=== PATIENT | female | born 1945 | race Caucasian/White ===

== ENCOUNTER 2020-04-19 11:26 | Outpatient (CLI) | payer MEDICARE, SELFPAY ==
--- NOTE | ~2020-04-19 | XR_ITS ---
EXAMINATION: XR hand LT min 3V, XR hand RT min 3V DATE: 04/19/2020 11:52 INDICATION: Bilateral hand pain. TECHNIQUE: 1. Posteroanterior, oblique and lateral views of the left hand were obtained. 2. Posteroanterior, oblique and lateral views of the right hand were obtained. COMPARISON: None. FINDINGS: Normal alignment at the bilateral hands. Symmetric likely developmental small bilateral distal phalan ges at the thumbs. No fracture. 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 Mild osteoarthritis at the bilateral wrist, triscaphe and remaining metacarpophalange al and interphalangeal joints. No cortical erosions to suggest an inflammatory arthritis. Loose osteo chondral body along the dorsal side of the left ulnar styloid process. IMPRESSION: 1. 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 Reviewed, dictated and finalized at location A. IMPRESSION: 1. 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
== END 2020-04-19 11:27 | disposition home or self-care (01) ==
PROVIDERS: PCP Family Medicine; Visit Provider Nurse Practitioner Family
DX: M19.041 Primary osteoarthritis, right hand (principal); M19.042 Primary osteoarthritis, left hand
CPT/HCPCS: 73130

== ENCOUNTER 2021-01-24 15:26 | Outpatient (CLI) | payer MEDICARE, SELFPAY | END 2021-01-24 15:27 | disposition home or self-care (01) | LOC: ANHCOVIDVC 15:27 | PROVIDERS: PCP Family Medicine | DX: Z23 Encounter for immunization (principal) | CPT/HCPCS: 0001A; 91300 ==

== ENCOUNTER 2021-02-15 10:11 | Outpatient (CLI) | payer MEDICARE, SELFPAY | END 2021-02-15 10:12 | disposition home or self-care (01) | LOC: ANHCOVIDVC 10:11 | PROVIDERS: PCP Family Medicine | DX: Z23 Encounter for immunization (principal) | CPT/HCPCS: 0002A; 91300 ==

== ENCOUNTER → 2021-02-28 09:32 | Outpatient (CLI) | payer MEDICARE, SELFPAY ==
[2021-03-01 21:01] LABS: SARS-CoV-2 RNA PCR Negative
== END ==
PROVIDERS: PCP Family Medicine; Visit Provider Family Medicine
DX: R68.89 Other general symptoms and signs (principal); Z20.822 Contact with and (suspected) exposure to COVID-19
CPT/HCPCS: C9803; U0003; U0005

== ENCOUNTER 2021-05-15 09:15 | Outpatient (CLI) | payer MEDICARE, SELFPAY ==
[2021-05-15 09:47] LABS: Basophils Percent Auto 0.5 % (0.2-1.2); Eosinophils Absolute Auto 0.2 K/mm3 (0-0.3); Eosinophils Percent Auto 2.9 % (0-4.4); Hematocrit 40.8 % (37.0-47.0); Hemoglobin 12.7 g/dL (12.0-15.0); Immature Granulocyte Absolute 0.03 K/mm3 (0.00-0.031); Immature Granulocyte Percent A 0.5 % (0-0.5); Lymphocytes Absolute Auto 1.21 K/mm3 (0.9-3.2); Lymphocytes Percent Auto 20.4 % (18.3-44.2); Mean Corpuscular HGB Conc 31.1 g/dl (32-36); Mean Corpuscular Hemoglobin 26.2 pg (26-34); Mean Corpuscular Volume 84.3 fl (80-100); Mean Platelet Volume 8.3 fl (7.4-10.4); Monocytes Absolute Auto 0.4 K/mm3 (0.1-0.6); Monocytes Percent Auto 6.1 % (2.6-8.5); Neutrophils Absolute Auto 4.1 K/mm3 (1.3-6.7); Neutrophils Percent Auto 69.6 % (45.5-73.1); Platelet Count Result 207 k/mm3 (150-375); Red Blood Count 4.84 M/mm3 (4.2-5.4); Red Cell Distribution Width 14.6 % (11.5-14.5); White Blood Count 5.9 K/mm3 (4.5-10.0)
[2021-05-15 09:56] LABS: Alanine Aminotransferase 17 U/L (4-35); Albumin Level 4.3 g/dL (3.5-5.1); Alkaline Phosphatase 91 U/L (38-126); Anion Gap 9 mmol/L (8-16); Aspartate Amino Transferase 27 U/L (14-36); Bilirubin,Total 0.4 mg/dL (0.2-1.3); Blood Urea Nitrogen 14 mg/dL (7-17); Calcium 9.9 mg/dL (8.4-10.2); Carbon Dioxide 28 mmol/L (22-30); Chloride 104 mmol/L (98-107); Cholesterol 290 mg/dL (0-200); Estimated Glomerular Filt Rate > 60; Glucose 131 mg/dL (65-105); HDL Direct 48 mg/dL; Sodium 141 mmol/L (137-145); Triglycerides 189 mg/dL (<150); Uric Acid 7.5 mg/dL (2.5-7.5)
[2021-05-15 10:06] LABS: LDL Cholesterol Direct 150 mg/dL
[2021-05-15 10:11] LABS: Creatinine Urine 179.2 mg/dL
[2021-05-15 10:13] LABS: MALB Creatinine Ratio 4.6 mg/g (0-30); Microalbumin Urine Random 8.3 mg/L (0-16.7)
[2021-05-15 10:41] LABS: Free T4 Free Thyroxine 1.08 ng/mL (0.78-2.19); Vitamin D 25 Hydroxy 29.4 ng/mL
[2021-05-15 12:14] LABS: Total Triiodothyronine (T3) 1.25 NG/ML (0.97-1.69)
== END 2021-05-15 09:16 | disposition home or self-care (01) ==
PROVIDERS: PCP Family Medicine; Visit Provider Nurse Practitioner
DX: E55.9 Vitamin D deficiency, unspecified (principal); E88.81 Metabolic syndrome and other insulin resistance; F41.1 Generalized anxiety disorder; F32.9 Major depressive disorder, single episode, unspecified; I13.10 Hypertensive heart and chronic kidney disease without heart failure, with stage 1 through stage 4 chronic kidney disease, or unspecified chronic kidney disease; E66.01 Morbid (severe) obesity due to excess calories; I12.9 Hypertensive chronic kidney disease with stage 1 through stage 4 chronic kidney disease, or unspecified chronic kidney disease; N18.30 Chronic kidney disease, stage 3 unspecified
CPT/HCPCS: 36415; 80053; 80061; 82043; 82306; 84439; 84443; 84480; 84550; 85025

== ENCOUNTER 2021-05-29 09:24 | Outpatient (CLI) | payer MEDICARE, SELFPAY ==
--- NOTE | 2021-06-17 18:10 | WPDSLEEPSTUD ---
Sleep Study Date of Study: 05/29/21 Ordering Provider: Jaleel Chirinos DO Interpreting Physician: Divya Chou MD Sleep Study Type: Split Polysomnogram Height: 1.63 m Weight: 104.326 kg Body Mass Index: 39.4 Neck Circumference (inches): 17 Reason for Sleep Study Hypersomnia Sleep History Anabelle Koch is a 75 year old female who has difficulty falling asleep and staying asleep. She does not wake from sleep feeling short of breath. She occasionally wakes with heartburn, belching or coughing. She does not snore and others do not tell her that she snores loudly. She occasionally has trouble sleeping with a cold. she does not wake up gasping for breath at night or sweat excessively at night. She occasionally notices her heart pounding or beating irregularly at night. She frequently falls asleep during the day, never falls asleep involuntarily or while driving. She occasionally has loss of muscle tone with strong emotion. She does not have daytime difficulties due to excessive sleepiness. She does not have vivid dreamlike scenes upon awakening or falling asleep. Does not feel afraid to go to sleep. She occasionally has nightmares. She occasionally remembers her dreams. She constantly feels sad, depressed and anxious. She does not have muscular tension. She frequently notices parts of her body jerking. She constantly has crawling and aching feelings in her legs and leg pain at night. She does not have morning jaw pain. She does not grind her teeth during sleep. She rarely is awakened by pain during the night. She does not wake up feeling stiff in the morning. She does not wake up with sore achy muscles. She rarely wakes up with pain in the neck and spine. She has fatigue and palpitations. Normal bedtime between 9:00 p.m. and 10:00 p.m. taking a long while to fall asleep waking once or twice at night to urinate. Once she awakens it is difficult for to fall asleep again. She is awake for the rest of the night. She watches the son come up. Her normal time to get out of bed his is between 6 and 8:00 a.m.. On the weekends her schedule is the same. She estimates getting between 3 and 5 hours of sleep at night. She takes naps in the afternoon or evening. A short nap may be refreshing. She feels better in the morning and evening compared to yesterday noon. Habits: She has never smoked tobacco. Caffeine: 2 Pepsi per day. No alcohol or recreational drugs. [facility] Past Medical History Medical History (Updated 06/18/21 @ 05:57 by Divya Chou MD) Chronic kidney disease, stage 3 Depression Diabetes mellitus type 2 in obese Dyslipidemia Hypertension Obesity Palpitations Family History Family History Mother Hypertension Family history of malignant neoplasm of breast in first degree relative Father Acute myocardial infarction Social History Social History Smoking status: Never smoker Medications Home Medications Medication Instructions Recorded Confirmed Type amlodipine 10 mg tablet 10 mg PO DAILY #30 tablet 04/30/21 04/30/21 Rx anastrozole 1 mg tablet 1 mg PO DAILY 04/30/21 04/30/21 History clotrimazole 1 % lotion ea TOPICAL 04/30/21 04/30/21 History liraglutide 0.6 mg/0.1 mL (18 mg/3 0.6 mg SUBCUT DAILY 04/30/21 04/30/21 History mL) subcutaneous pen injector metformin 1,000 mg tablet,extended 1,000 mg PO BID 04/30/21 04/30/21 History release 24hr metoprolol succinate 50 mg 50 mg PO DAILY 04/30/21 04/30/21 History tablet,extended release 24 hr tramadol 50 mg tablet 50 mg PO DAILY PRN tablet 04/30/21 04/30/21 History losartan 100 1 tablet PO DAILY #60 tablet 05/23/21 Rx mg-hydrochlorothiazide 25 mg tablet Sleep Procedure This test was performed using the [employer] multiple channel system including EOG, EEG, submental EMG, EKG, nasal and oral airflow using thermistors and nasa
[2021-06-18 05:55] VITALS: BMI 39.4
== END 2021-05-30 07:47 | disposition home or self-care (01) ==
LOC: ANHCSM 09:25
PROVIDERS: PCP Family Medicine; Visit Provider Internal Medicine Cardiovascular Disease
DX: G47.10 Hypersomnia, unspecified (principal); G47.33 Obstructive sleep apnea (adult) (pediatric)
CPT/HCPCS: 95811

== ENCOUNTER 2021-10-15 11:05 | Outpatient (CLI) | payer MEDICARE, SELFPAY ==
[2021-10-15 12:01] LABS: Alanine Aminotransferase 19 U/L (4-35); Albumin Level 4.6 g/dL (3.5-5.1); Alkaline Phosphatase 93 U/L (38-126); Anion Gap 9 mmol/L (8-16); Aspartate Amino Transferase 27 U/L (14-36); Bilirubin,Total 0.4 mg/dL (0.2-1.3); Blood Urea Nitrogen 29 mg/dL (7-17); Calcium 9.6 mg/dL (8.4-10.2); Carbon Dioxide 28 mmol/L (22-30); Chloride 99 mmol/L (98-107); Cholesterol 227 mg/dL (0-200); Estimated Glomerular Filt Rate 48; Glucose 178 mg/dL (65-110); HDL Direct 49 mg/dL; Magnesium 1.7 mg/dL (1.6-2.3); Potassium 3.4 mmol/L (3.4-5.0); Sodium 136 mmol/L (137-145); Triglycerides 163 mg/dL (<150)
[2021-10-15 12:14] LABS: LDL Cholesterol Direct 120 mg/dL
== END 2021-10-15 11:06 | disposition home or self-care (01) ==
PROVIDERS: PCP Family Medicine; Visit Provider Internal Medicine Cardiovascular Disease
DX: E78.5 Hyperlipidemia, unspecified (principal)
CPT/HCPCS: 36415; 80053; 80061; 83735

== ENCOUNTER 2022-07-02 09:00 | Outpatient (CLI) | payer MEDICARE, MEDICAID, SELFPAY ==
--- NOTE | ~2022-07-02 | NM_ITS ---
EXAMINATION: NM javed stress w perfusion DATE: 07/02/2022 11:29 INDICATION: Dyspnea on exertion. TECHNIQUE: Rest images were obtained following intravenous administration of 10.9 mCi Tc99m tetrofosm in (Myoview). The patient was infused intravenously with Lexiscan (regadenoson). Then, 33.5 mCi Tc99m tetrofosmin (Myoview) was administered intravenously, and stress images were obtained. Data was sae nstructed into short axis and horizontal and vertical long axis SPECT images. Gated SPECT images were also obtained. COMPARISON: None. FINDINGS: There is no definite reversible or fixed perfusion abnormality to suggest ischemia or infar ction. There is no segmental wall motion abnormality. Left ventricular ejection fraction measures > 70%. IMPRESSION: 1. No definite ischemia or infarct. 2. Normal left ventricular ejection fraction measuring >70%. Reviewed, dictated and finalized at location A.
--- NOTE | 2022-07-02 09:29 | EST_ITS ---
Patient Info Name: Anabelle Koch Age: 76 years : 1945 Gender: Female Ht: 64 in Wt: 210 lbs BSA: 2.12 m2 HR: 80 bpm BP: 135 / 72 mmHg Heart Rhythm: Sinus Rhythm Exam Date: 07/02/2022 10:12 AM Exam Location: [facility] Stress Patient Status: Outpatient Admit Date: 07/02/2022 Staff Ordering Physician: Jaleel Chirinos DO Attending Provider: Jaleel Chirinos DO Exercise Technologist: Lyndsey Wetzel CT Exercise Physician: Jaleel Chirinos DO Exam Type: CA stress javed w NM Study Info Indications R06.00 - Dyspnea, unspecified A regadenoson stress test was performed. Summary 1. 1. Negative lexiscan stress test for ischemic ST changes by ECG criteria. 2. 2. Stable hemodynamics throughout the test. 3. 3. Nuclear scan to follow and will be reported separately. Please correlate with it. 4. 4. Patient informed of the above results. Protocol: Lexiscan Stress ECG Details Stage: REST Duration (min): 1 min : 35 sec HR (bpm): 80 SBP (mmHg): 135 DBP (mmHg): 72 Stage: REST Duration (min): 7 min : 25 sec HR (bpm): 82 SBP (mmHg): 135 DBP (mmHg): 72 Stage: STAGE 1 Duration (min): 0 min : 59 sec HR (bpm): 100 SBP (mmHg): 125 DBP (mmHg): 63 Stage: RECOVERY Duration (min): 1 min : 0 sec HR (bpm): 96 SBP (mmHg): 125 DBP (mmHg): 63 Stage: RECOVERY Duration (min): 2 min : 0 sec HR (bpm): 90 SBP (mmHg): 125 DBP (mmHg): 63 Stage: RECOVERY Duration (min): 3 min : 0 sec HR (bpm): 90 SBP (mmHg): 131 DBP (mmHg): 64 Stage: RECOVERY Duration (min): 3 min : 7 sec HR (bpm): 90 SBP (mmHg): 131 DBP (mmHg): 64 Rest HR: 82 bpm Peak HR: 100 bpm Rest Sys BP: 135 mmHg Peak Sys BP: 131 mmHg Max Pred HR: 145 bpm % Max Pred HR: 69 % Target HR: 123 bpm Max RPP: 13,100 bpm*mmHg Termination Reason: Completed protocol Cardiac Symptoms: Shortness of breath Total Time: 1 min : 0 sec Rest Zarate BP: 72 mmHg Peak Zarate BP: 64 mmHg Total Dose: 0.4 mg Resting ECG Sinus rhythm, IRBBB. Stress ECG No ST changes. Arrhythmias None. Report Signatures
== END 2022-07-02 09:01 | disposition home or self-care (01) ==
LOC: ANHCARD 09:02
PROVIDERS: PCP Family Medicine; Visit Provider Internal Medicine Cardiovascular Disease
DX: R06.00 Dyspnea, unspecified (principal)
CPT/HCPCS: 78452; 93017; A9502; J2785

== ENCOUNTER 2023-04-15 13:17 | Outpatient (CLI) | payer MEDICARE, MEDICAID, SELFPAY ==
--- NOTE | 2023-04-15 16:24 | WPDPFTINT ---
PFT Procedure Performed PFT Procedure Performed Plethysmography (Lung Vol) Diffusing Cap (DLCO) Flow Vol Loop Spirometry w/o Bronchodil PFT Interpretation This is a pulmonary function test with spirometry, plethysmography and diffusing capacity. The test was performed and results interpreted in accordance with the 2019 and 2005 ATS/ERS Task Force guidelines respectively using the Global Lung Function Initiative-2012 reference equations. Patient demonstrated good effort and cooperation. Reproducibility criteria were met. The quality of the spirometry maneuver was Grade A. Findings: Spirometry: The contour the inspiratory and expiratory flow tracing are normal. The FVC is 3.12 L, 117% predicted. The FEV1 is 2.14 L, 105% predicted. The FEV1: FVC ratio 69%. Plethysmography: The total lung capacity is 5.25 L, 103% predicted. The functional residual capacity is 2.28 L, 78% predicted. The residual volume is 2.13 L, 92% predicted. Diffusion capacity: The diffusing capacity unadjusted for hemoglobin and carboxyhemoglobin is 20.2, 102% predicted. The diffusing capacity adjusted for alveolar volume is 4.19, 100% predicted. Impression: The spirometry is normal without evidence of an obstructive abnormality. The lung volumes are normal. The diffusing capacity is normal. There are no prior studies for comparison
== END 2023-04-15 13:18 | disposition home or self-care (01) ==
PROVIDERS: PCP Family Medicine; Visit Provider Internal Medicine Cardiovascular Disease
DX: R06.00 Dyspnea, unspecified (principal)
CPT/HCPCS: 94375; 94726; 94729

== ENCOUNTER 2023-06-01 11:03 | Emergency (ER) | payer MEDICARE, MEDICAID, SELFPAY ==
--- NOTE | ~2023-06-01 | XR_ITS ---
XR elbow RT min 3V 06/01/2023 12:40 Indication: Right elbow pain Procedure: 4 views right elbow Comparison: No prior studies for comparison. Findings: Moderate osteoarthritis of the right elbow. No fracture or traumatic malalignment. No forei gn bodies. No acute fracture Impression: 1: . No acute fracture. Reviewed, dictated and finalized at location A. Impression: 1: . No acute fracture.
--- NOTE | ~2023-06-01 | XR_ITS ---
EXAMINATION: XR toe 1st LT min 2V DATE: 06/01/2023 12:40 INDICATION: Left great toe pain post fall TECHNIQUE: 4 views of the left great toe were obtained. COMPARISON: Left foot radiographs dated 12/31/2015 FINDINGS: Minimal displacement of fracture plane is seen on the oblique projections at the dorsal lateral and d orsal medial aspect of the base of the left first distal phalanx. A true lateral projection is not ob tained and is unclear whether these represent a single dorsal sided fracture fragment or a comminuted fracture with separate medial and lateral sided fragments. No other fractures identified. Moderate o steoarthritis at the first metatarsophalangeal, second tarsometatarsal joints and multiple interphala ngeal joints. Mild osteoarthritis at the remaining joints in the mid and forefoot. IMPRESSION: Minimally displaced intra-articular fracture, potentially comminuted at the dorsal base o f the left first distal phalanx. Reviewed, dictated and finalized at location A. IMPRESSION: Minimally displaced intra-articular fracture, potentially comminute d at the dorsal base of the left first distal phalanx.
[2023-06-01 11:30] VITALS: BP 152/80; PULSE 97; RESP 16; TEMP 36.3; O2SAT 96
[2023-06-01 11:35] VITALS: BP 152/80; PULSE 97; RESP 18; TEMP 36.6; O2SAT 96
--- NOTE | 2023-06-01 12:15 | ED.FALL ---
HPI - Fall General Chief Complaint: Fall Stated Complaint: fall/elbow pain Time Seen by Provider: 06/01/23 11:47 History of Present Illness HPI Narrative: 77-year-old female presents to the emergency room today for evaluation of right elbow pain and left great toe pain after falling several days ago. She has a laceration to the left great toe that she has been managing at home with topical antibiotic ointment. She has bruising and swelling to the big toe. She has pain in the right elbow and reports that it is painful to straighten her arm. No numbness or tingling. She denies any other injuries from the fall. Related Data Home Medications Medication Instructions Recorded Confirmed anastrozole 1 mg tablet 1 mg PO DAILY 04/30/21 02/25/23 clotrimazole 1 % lotion ea topical 04/30/21 02/25/23 liraglutide 0.6 mg/0.1 mL (18 mg/3 0.6 mg subcut DAILY 04/30/21 02/25/23 mL) subcutaneous pen injector (Voxxter 2-Kyle) metformin 1,000 mg tablet,extended 1,000 mg PO BID 04/30/21 02/25/23 release 24hr tramadol 50 mg tablet 50 mg PO DAILY PRN 04/30/21 02/25/23 trazodone 100 mg tablet 100 mg PO QHS PRN 10/15/21 02/25/23 Allergies Allergy/AdvReac Type Severity Reaction Status Date / Time No Known Allergies Allergy Verified 02/25/23 10:02 Review of Systems Review of Systems: CONSTITUTIONAL: Denies fever, chills, or sweats. EYES: Denies visual changes, redness, or discharge. ENT: Denies rhinorrhea, congestion, sore throat, or otalgia. CARDIOVASCULAR: Denies chest pain, palpitations, or edema. RESPIRATORY: Denies cough or dyspnea. GASTROINTESTINAL: Denies abdominal pain, nausea, vomiting, or diarrhea. GENITOURINARY: Denies dysuria or hematuria. SKIN: healing laceration to left great toe MUSCULOSKELETAL: as per HPI NEUROLOGIC: Denies headache, numbness, dizziness, or weakness. PSYCHIATRIC: Denies anxiety or depression. [facility] Past Medical History Medical History Chronic kidney disease, stage 3 Depression Diabetes mellitus type 2 in obese Dyslipidemia Hypertension Obesity Palpitations Family History Family History Mother Hypertension Family history of malignant neoplasm of breast in first degree relative Father Acute myocardial infarction Social History Social History Smoking status: Never smoker Course Vital Signs Vital signs: Vital Signs Temperature 36.3 C L 06/01/23 11:30 Pulse Rate 97 06/01/23 11:30 Respiratory Rate 16 06/01/23 11:30 Blood Pressure 152/80 H 06/01/23 11:30 Pulse Oximetry 96 06/01/23 11:30 Oxygen Delivery Room Air 06/01/23 11:30 Temperature 36.6 C 06/01/23 11:35 Pulse Rate 97 06/01/23 11:35 Respiratory Rate 18 06/01/23 11:35 Blood Pressure 152/80 H 06/01/23 11:35 Pulse Oximetry 96 06/01/23 11:35 Oxygen Delivery Room Air 06/01/23 11:35 MDM - Fall MDM Narrative Medical decision making narrative: No fracture of right elbow. Given sling for support and pain relief. Boot ordered for the left great toe fracture. Pt has walker at home to use. She will follow up with podiatry for her toe and PCP for her right elbow pain. Discharge Plan Discharge Clinical Impression: Elbow pain, right Closed fracture of left great toe Qualifiers: Encounter type: initial encounter Phalanx: proximal Laceration of great toe of left foot Qualifiers: Encounter type: initial encounter Damage to nail status: without damage Foreign body presence: without foreign body Qualified Code(s): S91.112A - Laceration without foreign body of left great toe without damage to nail, initial encounter Patient Disposition: Home, Self-Care Condition: Stable Instructions: Antibiotic Form, Laceration (ED), Toe Fracture (ED) Additional Instructions: Wear boot. Prescription printed. You can get
[2023-06-01] MEDS: HYDROcodone/acetaminophen (*CRX) 5-325 MG TABLET 1 TAB PO (13:13)
== END 2023-06-01 14:38 | disposition home or self-care (01) ==
PROVIDERS: Emergency Provider Nurse Practitioner Family; PCP Family Medicine
DX: S92.422A Displaced fracture of distal phalanx of left great toe, initial encounter for closed fracture (principal); S91.112A Laceration without foreign body of left great toe without damage to nail, initial encounter; S59.901A Unspecified injury of right elbow, initial encounter; E11.22 Type 2 diabetes mellitus with diabetic chronic kidney disease; I12.9 Hypertensive chronic kidney disease with stage 1 through stage 4 chronic kidney disease, or unspecified chronic kidney disease; N18.30 Chronic kidney disease, stage 3 unspecified; E78.5 Hyperlipidemia, unspecified; E66.9 Obesity, unspecified; Z68.31 Body mass index [BMI] 31.0-31.9, adult; F32.A Depression, unspecified; Z79.84 Long term (current) use of oral hypoglycemic drugs; W19.XXXA Unspecified fall, initial encounter
CPT/HCPCS: 73080; 73660; 99284; A4565; A9270

== ENCOUNTER 2023-06-25 20:09 | Emergency (ER) | payer MEDICARE, MEDICAID, SELFPAY ==
--- NOTE | ~2023-06-25 | XR_ITS ---
EXAM: XR_[id number]_CR DATE: 06/25/2023 20:45 HISTORY: fall from deck this P.M./generalized neck pain . COMPARISON: None available. FINDINGS: Craniocervical association and atlantoaxial joint are aligned. Transverse lucency at the b ase of the odontoid with sclerotic margins, may reflect a chronic fracture. Prominent soft tissues an terior to the upper cervical spine with significant soft tissue swelling at the level of C4 and below . Question of fractured osteophyte anteriorly at C4 versus incomplete ossification. 2 mm anterolisthe sis at C2-3. 4 mm anterolisthesis at C3-4. Multilevel degenerative disc disease and facet arthropathy IMPRESSION: Presumed old type II odontoid fracture. Grade 1 anterolisthesis at C2-3. Grade 1-2 anterolisthesis at C3-4. Possible acutely or chronically fractured anterior osteophyte at C4, versus incomplete ossification. Prevertebral soft tissue swelling anterior to C4 and below. Recommend CT of the cervical spine for further evaluation. Reviewed, dictated and finalized at location K. IMPRESSION: Presumed old type II odontoid fracture. Grade 1 anterolisthesis at C2-3. Grade 1-2 anterolisthesis at C3-4. Possible acutely or chronically fractured anterior osteophyte at C4, versus inc omplete ossification. Prevertebral soft tissue swelling anterior to C4 and below. Recommend CT of the cervical spine for further evaluation.
--- NOTE | ~2023-06-25 | CT_ITS ---
EXAMINATION: CT cervical spine wo con DATE: 06/25/2023 21:48 INDICATION: fall, neck pain, abnormal xray TECHNIQUE: Computed tomography (CT) of the cervical spine was performed without intravenous contrast. Automated exposure control and iterative reconstruction technique were employed. The dose-length pro duct was 264.05 mGy-cm. COMPARISON: X-ray C-spine, same date. FINDINGS: Vertebral Body Alignment: Trace anterolisthesis at C2-3. 3 mm anterolisthesis at C3-4. Reversed lordo sis, centered at C5. Craniocervical and atlantoaxial alignment: Severe degenerative change. Alignment intact. Osseous structures/fracture: No evidence of a lytic or blastic process in the visualized spine. No e vidence of acute fracture. Chronic appearing type II odontoid fracture. Chronic appearing anterior os teophyte fracture at the inferior aspect of C5. Cervical soft tissues: The paraspinal soft tissues planes are maintained. No prevertebral soft tissue swelling. Marked medial deviation of the bilateral carotid arteries, nearly touching at the midline. Prominent bilateral jugular veins. Degenerative changes: Multilevel severe degenerative disc disease and moderate facet arthropathy. No severe central canal narrowing. Multilevel severe bilateral neural foraminal narrowing. IMPRESSION: No acute fracture or traumatic malalignment in the cervical spine. Chronic type II odontoid and C5 anterior osteophyte fractures. The apparent prevertebral soft tissue swelling in the prior radiographs was caused by medially direct ed carotid arteries and prominent bilateral internal jugular veins. Grade 1 anterolistheses at C2-3 and C3-4, presumably on a degenerative basis. Reviewed, dictated and finalized at location K. IMPRESSION: No acute fracture or traumatic malalignment in the cervical spine. Chronic type II odontoid and C5 anterior osteophyte fractures. The apparent prevertebral soft tissue swelling in the prior radiographs was cau sed by medially directed carotid arteries and prominent bilateral internal jugu lar veins. Grade 1 anterolistheses at C2-3 and C3-4, presumably on a degenerative basis.
--- NOTE | ~2023-06-25 | CT_ITS ---
EXAMINATION: CT brain wo con DATE: 06/25/2023 20:48 INDICATION: fall/hi . TECHNIQUE: Computed tomography (CT) of the head was performed without intravenous contrast. The mA wa s adjusted according to patient size. Iterative reconstruction technique was employed. The dose-lengt h product was 605.33 mGy-cm. COMPARISON: None. FINDINGS: No acute intracranial hemorrhage or extra-axial fluid collection. No hydrocephalus, mass, or herniation. No acute ischemic infarct. Unremarkable dural venous sinus attenuation. No acute osseous abnormality. Small left frontal/orbital soft tissue swelling. The aerated spaces are clear. Mild atrophy and chronic white matter change. Atherosclerotic intracranial calcification. Right lens replacement. IMPRESSION: No acute intracranial process. Reviewed, dictated and finalized at location K.
[2023-06-25 20:19] VITALS: BP 164/111; PULSE 87; RESP 18; TEMP 36.4; O2SAT 100
[2023-06-25 21:05] VITALS: BP 171/96; PULSE 81; RESP 20; O2SAT 100
[2023-06-25] MEDS: ACETAMINOPHEN 500 MG TABLET 1000 MG PO (22:41)
[2023-06-25] MEDS: CYCLOBENZAPRINE HCL 5 MG TABLET PO (22:41)
--- NOTE | 2023-06-25 22:45 | ED.FALL ---
HPI - Fall General Chief Complaint: Fall Stated Complaint: fall, head injury Time Seen by Provider: 06/25/23 21:13 Source: patient Mode of arrival: ambulatory Limitations: no limitations History of Present Illness HPI Narrative: Patient is a 77-year-old female who presents to the ED with report of a fall. Patient reports she was helping her grandson take out the trash tonight when she tripped on her feet and fell. She did hit her head in the fall, but denied LOC. Denied any prodromal symptoms prior to the fall. Denies any dizziness, lightheadedness, vision changes, nausea, vomiting. She does complain of significant pain to her posterior and right-sided neck. She has not taken anything for pain prior to arrival. Denies any pain radiating down her arms. Denies numbness or tingling in her arms. Denies chest or back pain. Denies difficulty breathing. Patient is not on any blood thinners. Patient reports she recently fractured one of her left toes. She is currently in a postop shoe and thinks this is how she tripped. Related Data Home Medications Medication Instructions Recorded Confirmed anastrozole 1 mg tablet 1 mg PO DAILY 04/30/21 02/25/23 clotrimazole 1 % lotion ea topical 04/30/21 02/25/23 liraglutide 0.6 mg/0.1 mL (18 mg/3 0.6 mg subcut DAILY 04/30/21 02/25/23 mL) subcutaneous pen injector (Victoza 2-Kyle) metformin 1,000 mg tablet,extended 1,000 mg PO BID 04/30/21 02/25/23 release 24hr tramadol 50 mg tablet 50 mg PO DAILY PRN 04/30/21 02/25/23 trazodone 100 mg tablet 100 mg PO QHS PRN 10/15/21 02/25/23 Allergies Allergy/AdvReac Type Severity Reaction Status Date / Time No Known Allergies Allergy Verified 06/25/23 21:05 Review of Systems Review of Systems: CONSTITUTIONAL: Denies fever, chills, or sweats. EYES: Denies visual changes. CARDIOVASCULAR: Denies chest pain. RESPIRATORY: Denies dyspnea. GASTROINTESTINAL: Denies abdominal pain, nausea, vomiting. MUSCULOSKELETAL: See HPI. NEUROLOGIC: See HPI. All systems reviewed & are unremarkable except as noted in HPI and below PMFSH Past Medical History Medical History Chronic kidney disease, stage 3 Depression Diabetes mellitus type 2 in obese Dyslipidemia Hypertension Obesity Palpitations Family History Family History Mother Hypertension Family history of malignant neoplasm of breast in first degree relative Father Acute myocardial infarction Social History Social History Smoking status: Never smoker Exam Narrative: GENERAL: Elderly, obese with BMI of 38.1, non-toxic, in mild acute distress d/t pain. HEAD: Normocephalic, atraumatic. NECK: Supple. No adenopathy, no masses. Limited range of motion of neck due to pain. Tenderness to palpation over right paraspinal musculature extending into right upper trapezius. Palpable muscle tension. No significant midline spinal tenderness. RESPIRATORY: Airway patent, respirations nonlabored. Clear to auscultation bilaterally, no rales, rhonchi, wheezing. CARDIOVASCULAR: Regular rate and rhythm without murmurs, rubs, or gallops. Pedal pulses 2+ and equal bilaterally. ABDOMINAL: Soft, nontender, nondistended, no hepatosplenomegaly. Normoactive BS. MUSCULOSKELETAL: Moves all extremities. Strength/ROM intact without gross deformities. No midline thoracic or lumbar spinal tenderness. L foot in post-op shoe. Full range of motion of upper extremities bilaterally. No pain down upper extremities. SKIN: Warm, dry, normal color. No rashes. NEURO: A&O X3. Speech clear. Cranial nerves II-XII grossly intact. Steady gait. No ataxic movements. No focal neurologic deficits. Sensation intact. Equal furnace cleaner strength bilaterally. PSYCHIATRIC: Appropriate mood and affect. Normal interaction. Course Vital Signs Vital signs: Joya
--- NOTE | 2023-06-25 22:47 | PC.NURSE ---
5mg Flexiril tablet dropped on floor by pt. Medication wasted and new tab pulled from [facility].
--- NOTE | 2023-06-26 00:16 | PC.NURSE ---
Pt declined napoxen that was ordered. Pt was told by this RN we would have to wait a few minutes for pharmacy to send up the medication. Pt stated she no longer wanted it and was ready to go home.
== END 2023-06-26 00:33 | disposition home or self-care (01) ==
PROVIDERS: Emergency Provider Physician Assistant; PCP Family Medicine
DX: S09.90XA Unspecified injury of head, initial encounter (principal); S16.1XXA Strain of muscle, fascia and tendon at neck level, initial encounter; E11.22 Type 2 diabetes mellitus with diabetic chronic kidney disease; I12.9 Hypertensive chronic kidney disease with stage 1 through stage 4 chronic kidney disease, or unspecified chronic kidney disease; N18.30 Chronic kidney disease, stage 3 unspecified; E78.5 Hyperlipidemia, unspecified; F32.A Depression, unspecified; Z79.84 Long term (current) use of oral hypoglycemic drugs; Z79.85 Long-term (current) use of injectable non-insulin antidiabetic drugs; M84.48XA Pathological fracture, other site, initial encounter for fracture; W01.0XXA Fall on same level from slipping, tripping and stumbling without subsequent striking against object, initial encounter
CPT/HCPCS: 70450; 72040; 72125; 99284; A9270

== ENCOUNTER 2023-07-20 16:33 | Outpatient (CLI) | payer MEDICARE, MEDICAID, SELFPAY ==
--- NOTE | ~2023-07-20 | MR_ITS ---
EXAMINATION: MR cervical spine wo con DATE: 07/20/2023 17:43 INDICATION: Cervical disc degeneration. TECHNIQUE: Magnetic resonance imaging (MRI) of the cervical spine was performed without intravenous c ontrast. COMPARISON: CT cervical spine 06/25/2023 FINDINGS: There is 9 degrees dextrocurvature of thoracic spine. There is 3 mm anterolisthesis of C3 o n C4 and 2 mm anterolisthesis of C7 on T1. There is a fracture of the base of the dens. There is monalisa a-like marrow signal intensity in the anterior C1 ring and C2 body. 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 There is mildly decreased disc height at C4- C5 and severely decreased disc height at C5-C6 and C6-C7. The spinal cord signal intensity is normal. The following disc levels are specifically discussed: C2-C3: The disc does not extend beyond the endplate margin. There is mild bilateral uncovertebral khadra nt osteoarthritis. There is severe bilateral facet joint osteoarthritis. There is mild bilateral neur al foraminal stenosis. There is no central canal stenosis. C3-C4: There is a left central extrusion. There is moderate bilateral uncovertebral joint osteoarthri tis. There is severe bilateral facet joint osteoarthritis. There is mild bilateral neural foraminal s tenosis. There is mild central canal stenosis with ventral indentation of the spinal cord. C4-C5: The disc is bulging. There is severe bilateral uncovertebral joint osteoarthritis. There is se swapna bilateral facet joint osteoarthritis. There is moderate right and mild left neural foraminal radha nosis. There is mild central canal stenosis. C5-C6: The disc is bulging. There is severe bilateral uncovertebral joint osteoarthritis. There is mo derate bilateral facet joint osteoarthritis. There is mild bilateral neural foraminal stenosis. There is mild central canal stenosis. C6-C7: The disc is bulging. There is severe bilateral uncovertebral joint osteoarthritis. There is se swapna bilateral facet joint osteoarthritis. There is moderate right and mild left neural foraminal radha nosis. There is mild central canal stenosis. C7-T1: There is a central extrusion. There is mild bilateral uncovertebral joint osteoarthritis. Ther e is ankylosis of the facet joints with mild hypertrophy. There is mild bilateral neural foraminal st enosis. There is no central canal stenosis. IMPRESSION: 1. Type II odontoid fracture again seen, which may be subacute or chronic. 2. Severe cervical spondylosis. Reviewed, dictated and finalized at location A.
== END 2023-07-20 16:34 | disposition home or self-care (01) ==
LOC: ANHIMG 16:34
PROVIDERS: PCP Family Medicine; Visit Provider Nurse Practitioner Adult Health
DX: M50.30 Other cervical disc degeneration, unspecified cervical region (principal)
CPT/HCPCS: 72141

== ENCOUNTER 2023-10-20 09:01 | Outpatient (CLI) | payer MEDICARE, SELFPAY ==
--- NOTE | ~2023-10-20 | US_ITS ---
EXAMINATION: US abdomen limited DATE: 10/20/2023 09:28 INDICATION: Right upper quadrant pain TECHNIQUE: Multiple grayscale and Doppler ultrasound images of the abdomen were obtained. COMPARISON: CT, 01/05/2018 FINDINGS: There is a fat-containing ventral hernia with an approximately 1.4 cm neck located superior to the umbilicus. No discrete abnormality is identified in the right lateral abdomen. Sonographicall y normal bowel is noted. IMPRESSION: 1. Fat-containing umbilical hernia superior to the umbilicus. No definite sonographically detected ab normality seen in the right lateral abdomen although large hernia may be difficult to visualize by ul lyndseyund. Consider CT. Reviewed, dictated and finalized at location L. MOLDER HAND IMPRESSION: 1. Fat-containing umbilical hernia superior to the umbilicus. No definite sonog raphically detected abnormality seen in the right lateral abdomen although larg e hernia may be difficult to visualize by ultrasound. Consider CT.
== END 2023-10-20 09:02 ==
DX: R19.01 Right upper quadrant abdominal swelling, mass and lump (principal); K42.9 Umbilical hernia without obstruction or gangrene
CPT/HCPCS: 76705